=== PATIENT | female | born 1940 | race Caucasian/White ===

== ENCOUNTER → 2017-04-13 | Outpatient (CLI) | payer MEDICARE ==
[~2017-04-13] MED LIST: AMLODIPINE BESY10 MG PO; ASPIR 8181 MG PO; ASPIRIN EC81 MG PO; ATORVASTATIN CA40 MG PO; CARVEDILOL25 MG PO; CIPROFLOXACIN500 MG PO; CYMBALTA60 MG PO; DIOVAN160 MG PO; ELIQUIS PO; FUROSEMIDE40 MG PO; GABAPENTIN300 MG PO; INSULIN ASPART; JANUVIA100 MG PO; LANTUS100 UNIT/1 SQ; LEXAPRO10 MG PO; LIPITOR20 MG PO; LOSARTAN POTAS100 MG PO; LYRICA75 MG PO; METFORMIN HCL1000 MG PO; METFORMIN HCL500 MG PO; MICARDIS80 MG PO; NOVOLOG100 UNITS1; PLAVIX75 MG PO; POTASSIUM CHLO10 ME1 PO; PRAZOSIN HCL2 MG PO; SLOW MAG PO; STARLIX120 MG PO; SYNTHROID100 MCG PO; TRESIBA SC; VICTOZA 2-0.6 MG/0.1 SQ; VITAMIN B12 INJ SC; VITAMIN D250000 UNIT PO; [UNRECOGNIZED DRUG - OTHER] PO
--- NOTE | 2017-04-13 13:08 | Diagnostic Imaging Report ---
PROCEDURE:CHEST 2 VIEWS TECHNIQUE:PA and lateral chest INDICATION:Cough COMPARISON:Patients [facility], DX, CHEST SINGLE (PORTABLE), 04/03/2017, 11:35. FINDINGS: Lungs are clear. No pleural effusions. Large cardiac silhouette with mild prominent central vasculature. Intact skeleton. CONCLUSION: Cardiomegaly with central vascular congestion. Dictated by: Narciso Lane M.D. on 04/13/2017 at 13:16 Electronically approved by: Narciso Lane M.D. on 04/13/2017 at 13:16
== END ==
LOC: RAD 12:13
PROVIDERS: ATTEND Family Medicine
DX: R05 Cough (principal)
CPT/HCPCS: 71020

== ENCOUNTER → 2019-12-15 | Outpatient (CLI) | payer MEDICARE ==
--- NOTE | 2019-12-15 14:35 | Diagnostic Imaging Report ---
Exam: Lumbar spine 2 views History: Back pain Comparison: None. Findings: Bone demineralization. Age-indeterminate compression deformity of T12. Mild degenerative disc throughout the lumbar spine with facet arthrosis at L4-5 L5-S1. 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 Pankaj Pardo M.D. on 12/15/2019 2:32 PM
== END ==
LOC: RAD 13:58
PROVIDERS: ATTEND Internal Medicine
DX: M54.5 Low back pain (principal)
CPT/HCPCS: 72100

== ENCOUNTER → 2020-01-14 | Outpatient (CLI) | payer MEDICARE | LOC: RAD 15:25 | PROVIDERS: ATTEND Internal Medicine | DX: R07.81 Pleurodynia (principal); M54.6 Pain in thoracic spine | CPT/HCPCS: 71046; 72070 ==